=== PATIENT | male | born 1990 | race Caucasian/White ===

== ENCOUNTER 2018-01-15 22:49 | Emergency (ER) | payer OTHER ==
[~2018-01-15] VITALS: Ht 172.7 cm; Wt 74.8 kg
[2018-01-16] MEDS ORDERED: AZIT1PAC PO (00:29)
--- NOTE | 2018-01-16 00:39 | PHYS DOC ---
Adult General Chief Complaint Chief Complaint: EARACHE/EAR PAIN HPI HPI 27-year-old male member of the without significant past medical history now presents to the emergency department complaining of left earache for 2 days. Patient easily had some sinus congestion and then evolved left ear pain which has been persistent. He denies fevers chills sweats or shaking chills. No headache or stiff neck. No chest pain or shortness of breath. Hearing is normal. No history of chronic problems with his left ear. Review of Systems Review of Systems Constitutional: Denies fever or chills [] Eyes: Denies change in visual acuity, redness, or eye pain [] HENT: Denies nasal congestion or sore throat [] Respiratory: Denies cough or shortness of breath [] Cardiovascular: No additional information not addressed in HPI [] GI: Denies abdominal pain, nausea, vomiting, bloody stools or diarrhea [] : Denies dysuria or hematuria [] Musculoskeletal: Denies back pain or joint pain [] Integument: Denies rash or skin lesions [] Neurologic: Denies headache, focal weakness or sensory changes [] Endocrine: Denies polyuria or polydipsia [] All other systems were reviewed and found to be within normal limits, except as documented in this note. Current Medications Current Medications Current Medications Medications (Trade) Dose Ordered Sig/[facility] Start Time Stop Time Status Last Admin Dose Admin Azithromycin (Zithromax) 500 mg 1X ONCE 01/16/18 00:30 4 00:31 UNV Ibuprofen (Motrin) 800 mg 1X ONCE 01/16/18 00:30 01/16/18 00:31 UNV Physical Exam Physical Exam Left TM with erythema and bulging and loss of landmarks. Normal EAC. Normal pinna. Right TM normal no cervical adenopathy. Well-appearing patient supple neck Constitutional: Well developed, well nourished, no acute distress, non-toxic appearance. [] HENT: Normocephalic, atraumatic, bilateral external ears normal, oropharynx moist, no oral exudates, nose normal. [] Eyes: PERRLA, EOMI, conjunctiva normal, no discharge. [] Neck: Normal range of motion, no tenderness, supple, no stridor. [] Cardiovascular:Heart rate regular rhythm, no murmur [] Lungs & Thorax: Bilateral breath sounds clear to auscultation [] Abdomen: Bowel sounds normal, soft, no tenderness, no masses, no pulsatile masses. [] Skin: Warm, dry, no erythema, no rash. [] Back: No tenderness, no CVA tenderness. [] Extremities: No tenderness, no cyanosis, no clubbing, ROM intact, no edema. [] Neurologic: Alert and oriented X 3, normal motor function, no focal deficits noted. [] Psychologic: Affect normal, judgement normal, mood normal. [] EKG EKG [] Radiology/Procedures Radiology/Procedures [] Course & Med Decision Making Course & Med Decision Making Pertinent Labs and Imaging studies reviewed. (See chart for details) Signs and symptoms consistent with otitis media in well-appearing patient with unremarkable vital signs and a benign exam. Zithromax given in ED as well as NSAID. Prescription for Zithromax dispensed. No further workup or treatment indicated at this time patient agrees with outpatient follow-up with PCP and strict return precautions given. Patient feels that his pain will be adequately controlled with ibuprofen and Tylenol. [] Dragon Disclaimer Dragon Disclaimer This electronic medical record was generated, in whole or in part, using a voice recognition dictation system. Departure Departure: Impression: Primary Impression: Left otitis media Disposition: HOME, SELF-CARE Condition: GOOD Referrals: TIFFANY MCKEON MD (PCP) Patient Instructions: Otitis Media, Adult Additional Instructions: It appears that you have a middle ear infection also known as otitis media. As discussed, it is possible that this could be the result of a viral infection alone however it is impossible to rule out a bacterial infection. You been given an antibiotic, Zithromax, in order to cover for the possibility of a bacterial cause for your infection. Your therapy has been initiated tonight with the first dose of Zithromax. Fill your prescription tomorrow and finish as prescribed. If you have discomfort take ibuprofen every 6 hours and consider Tylenol every 4 hours as well if necessary for continued pain. Follow-up with your doctor in 1-2 days and return immediately for new severe or worsening symptoms Scripts Azithromycin (ZITHROMAX PACKET) 1 Gm Packet 1 PACKET PO ONCE, #1 PACKET Prov: KAM MERRITT MD 01/16/18 KAM MERRITT MD Jan 16, 2018 00:39
[2018-01-16] MEDS ORDERED: IBUPROFEN 800 MG TABLET. PO ONE (00:45)
[2018-01-16] MEDS ORDERED: AZITHROMYCIN 250 MG TABLET. PO ONE (00:45)
[2018-01-16 00:55] VITALS: BP 117/75
== END 2018-01-16 00:58 | disposition home or self-care (01) ==
LOC: ER 22:49
DX: H66.92 Otitis media, unspecified, left ear (principal); R09.81 Nasal congestion
CPT/HCPCS: 99283; J0456